=== PATIENT | female | born 1935 | race Caucasian/White ===

== ENCOUNTER → 2024-01-29 | Outpatient (CLI) | payer MEDICARE, BC, SELFPAY ==
--- NOTE | 2024-01-29 13:53 | XR_ITS ---
Examination: Lumbar spine, 5 views Technique: Lumbar spine AP, lateral, coned lateral lower lumbar spine, bilateral obliques 5 views Exam date and time: January 29, 2024 1505 hours Comparison March 03, 2019 INDICATIONS: Patient fell 2 weeks ago with injury to lower back, lower back pain, chronic lower back pain years lumbar spine surgery 5 years ago FINDINGS: Severe osteopenia Lumbar dextroscoliosis 20 degrees Diffuse advanced facet arthropathy Stable alignment transpedicular lumbar fusion L4-L5 Advanced degenerative disc disease L2-L3, L3-L4 Compression fracture with depression superior endplate L1, age-indeterminate IMPRESSION: Recommend CT scan lumbar spine follow-up to best assess acuity of the fracture of the L1 vertebral body
== END | disposition home or self-care (01) ==
LOC: CDIM 13:31
PROVIDERS: PCP Family Medicine; Referring Provider Physician Assistant; Visit Provider Physician Assistant
DX: S39.92XA Unspecified injury of lower back, initial encounter (principal); W19.XXXA Unspecified fall, initial encounter
CPT/HCPCS: 72110

== ENCOUNTER → 2024-03-02 | Outpatient (CLI) | payer MEDICARE, BC, SELFPAY ==
[2024-03-02 12:47] LABS: Basophils # (Auto) 0.1 Thou/mm3 (0.0-0.2); Basophils % (Auto) 1 % (0-2.5); Eosinophils # (Auto) 0.1 Thou/mm3 (0.0-0.5); Eosinophils % (Auto) 2 % (0-10); Hematocrit 45.4 % (36.0-46.0); Hemoglobin 14.9 g/dL (12.0-16.0); Immature Granulocytes % (Auto) 0 % (0-0); Immature Granulocytes Auto 0.03 Thou/mm3 (0.00-0.00); Lymphocytes # (Auto) 2.9 Thou/mm3 (1.0-4.8); Lymphocytes % (Auto) 40 % (10-50); Mean Corpuscular HGB Conc 32.8 g/dl (31.0-37.0); Mean Corpuscular Hemoglobin 29.1 pg (25.0-35.0); Mean Corpuscular Volume 89 fL (80-100); Monocytes # (Auto) 0.5 Thou/mm3 (0.0-0.8); Monocytes % (Auto) 6 % (0-12); Neutrophils # (Auto) 3.8 Thou/mm3 (1.8-7.7); Neutrophils % (Auto) 52 % (37-80); Nucleated Red Blood Cell % 0 /100 WBC (0); Platelet Count 306 Thou/mm3 (140-440); RDW Standard Deviation 41.4 fL (36.4-46.3); Red Blood Count 5.12 Miln/mm3 (4.00-5.20); White Blood Count 7.3 Thou/mm3 (3.6-11.0)
[2024-03-02 13:06] LABS: Alanine Aminotransferase 13 U/L (10-49); Albumin, Serum 4.5 gm/dL (3.4-4.8); Albumin/Globulin Ratio 1.7 (1.2-2.2); Alkaline Phosphatase 103 U/L (46-116); Anion Gap 7 (7-16); Aspartate Amino Transferase 22 U/L (0-34); BUN/Creatinine Ratio 21 Ratio (12-20); Bilirubin,Total 0.6 mg/dL (0.3-1.2); Blood Urea Nitrogen 17 mg/dL (9-23); Calcium 9.8 mg/dL (8.3-10.6); Calcium (Corrected) 9.8 mg/dL (8.5-10.1); Carbon Dioxide 29.9 mMol/L (20.0-31.0); Chloride 103 mMol/L (98-107); Creatinine (Component) 0.8 mg/dL (0.6-1.3); Globulin 2.7 gm/dL (2.3-3.5); Glucose 107 mg/dL (74-106); Osmolality,Calculated 280 (275-295); Potassium 3.9 mMol/L (3.4-5.1); Sodium 140 mMol/L (136-145); Thyroid Stimulating Hormone 4.37 uIU/mL (0.55-4.78); Total Protein 7.2 gm/dL (5.7-8.2); eGFR > 60 See Note
[2024-03-02 13:12] LABS: Glucose Estimated Average 126 mg/dL (80-131)
[2024-03-02 13:22] LABS: Cardiac Risk Estimate 4.3 RATIO (3.7-5.6); Cholesterol 211 mg/dL (132-200); HDL Cholesterol 49 mg/dL (40-60); LDL Cholesterol,Calculated 102 mg/dL (0-130); Triglycerides 302 mg/dL (30-150)
[2024-03-02 17:49] LABS: Vitamin B12 486 pg/mL (211-911)
[2024-03-03 12:15] LABS: Vitamin D 25 Hydroxy Total 35.3 ng/mL (7.3-40.2)
== END | disposition home or self-care (01) ==
LOC: COPL 10:37
PROVIDERS: PCP Family Medicine; Referring Provider Physician Assistant; Visit Provider Physician Assistant
DX: I10 Essential (primary) hypertension (principal); R73.01 Impaired fasting glucose; E78.5 Hyperlipidemia, unspecified; E55.9 Vitamin D deficiency, unspecified
CPT/HCPCS: 36415; 80053; 80061; 81001; 82306; 82607; 83036; 84443; 85025

== ENCOUNTER → 2024-03-10 | Outpatient (CLI) | payer MEDICARE, BC, SELFPAY ==
--- NOTE | 2024-03-10 13:30 | XR_ITS ---
Examination: CT lumbar spine, without contrast. 2-D sagittal reconstructions. 2-D coronal reconstructions. 3-D reconstructions. Date and time of exam:March 10, 2024 1559 hours INDICATIONS: Patient fell December 2023 with back fracture in persistent pain CTDI: vol (mGy):21.7 DLP: (mGycm):575 Technique: Multiple 1.25 mm axial sections of the lumbar spine without intravenous contrast have been obtained. 2-D sagittal and coronal reconstructions have been obtained. 3-D reconstructions have been obtained. Low dose protocols were performed. One or more of the following dose reduction techniques were used; automated exposure control, adjustment of the mA and/or KV according to patient size, use of iterative reconstruction technique. Findings: Acute fracture L1 vertebral body, depression superior endplate, reduction in height 40% Pedicles appear intact Advanced degenerative disc disease L2-L3 Transpedicular fusion with disc spacer at the L4-L5 level No focal lumbar disc protrusion IMPRESSION: Acute fracture L1 vertebral body, depression superior endplate, reduction in height 40% Satisfactory alignment of this vertebral body
== END | disposition home or self-care (01) ==
LOC: CCTX 12:59
PROVIDERS: PCP Family Medicine; Referring Provider Physician Assistant; Visit Provider Physician Assistant
DX: S32.010B Wedge compression fracture of first lumbar vertebra, initial encounter for open fracture (principal); W19.XXXD Unspecified fall, subsequent encounter
CPT/HCPCS: 72131

== ENCOUNTER → 2024-08-31 | Outpatient (CLI) | payer MEDICARE, BC, SELFPAY ==
[2024-08-31 12:34] LABS: Glucose Estimated Average 126 mg/dL (80-131); Hemoglobin A1C 6.0 % Hgb (4.8-6.0)
[2024-08-31 12:37] LABS: Alanine Aminotransferase 16 U/L (10-49); Albumin, Serum 4.4 gm/dL (3.4-4.8); Albumin/Globulin Ratio 1.8 (1.2-2.2); Alkaline Phosphatase 95 U/L (46-116); Anion Gap 9 (7-16); Aspartate Amino Transferase 23 U/L (0-34); BUN/Creatinine Ratio 24 Ratio (12-20); Bilirubin,Total 0.8 mg/dL (0.3-1.2); Blood Urea Nitrogen 19 mg/dL (9-23); Calcium 9.4 mg/dL (8.3-10.6); Calcium (Corrected) 9.4 mg/dL (8.5-10.1); Carbon Dioxide 31.3 mMol/L (20.0-31.0); Cardiac Risk Estimate 4.3 RATIO (3.7-5.6); Chloride 103 mMol/L (98-107); Cholesterol 213 mg/dL (132-200); Creatinine (Component) 0.8 mg/dL (0.6-1.3); Globulin 2.4 gm/dL (2.3-3.5); Glucose 107 mg/dL (74-106); HDL Cholesterol 50 mg/dL (40-60); LDL Cholesterol,Calculated 113 mg/dL (0-130); Osmolality,Calculated 287 (275-295); Potassium 4.2 mMol/L (3.4-5.1); Sodium 143 mMol/L (136-145); Total Protein 6.8 gm/dL (5.7-8.2); Triglycerides 250 mg/dL (30-150); eGFR > 60 See Note
== END | disposition home or self-care (01) ==
LOC: COPL 11:33
PROVIDERS: PCP Physician Assistant; Referring Provider Physician Assistant; Visit Provider Physician Assistant
DX: I10 Essential (primary) hypertension (principal); E78.5 Hyperlipidemia, unspecified; R73.01 Impaired fasting glucose
CPT/HCPCS: 36415; 80053; 80061; 83036

== ENCOUNTER 2024-11-13 12:02 | Inpatient (IN) | payer MEDICARE, BC, SELFPAY ==
[2024-11-13] VITALS (7 sets, daily range): BP systolic 105–121; BP diastolic 56–66; PULSE 51–67; RESP 16–94; TEMP 36.8–37.7; O2SAT 92–98; BMI 29.2; BMI 27.3
--- NOTE | 2024-11-13 | XR_ITS ---
Examination: CT brain head without contrast. 2-D sagittal coronal reconstructions Date and time of exam:November 13, 2024, 1342 hrs., Comparison February 10, 2017 Indications: Frequent falls this week with injury of the head, head pain CTDI: vol (mGy):47.9 DLP: (mGycm):882 Technique: Multiple CT axial sections of the brain have been obtained, 5 mm slice thickness. Contrast has not been administered. 2-D sagittal, coronal reconstructions have been obtained Low dose protocols were performed. One or more of the following dose reduction techniques were used; automated exposure control, adjustment of the mA and/or KV according to patient size, use of iterative reconstruction technique. Findings: No significant ventricular enlargement. Intra-axial or extra-axial hemorrhage density is not seen. No mass effect or midline shift Basal cisterns are not remarkable. Fourth ventricle is midline. Cranial vault intact. Impression: Negative for acute hemorrhage, mass effect or midline shift
--- NOTE | 2024-11-13 12:32 | XR_ITS ---
Examination: AP chest single view Technique one AP portable chest single view Date and time: November 13, 2024, 1300 hrs. Indications: Sepsis alert Findings: Subtle opacity left base retrocardiac Right lung clear. Mild prominence left ventricle Impression: Early pneumonia left base.
--- NOTE | 2024-11-13 12:32 | EKG_ITS ---
[facility] Test Date: 2024-11-13 Pat Name: SALAZAR PICKETT Department: Room: - Gender: Female Senior Environmental Consultant: : 1935 Requested By: Michael Aldana Order Number: [id number] Reading MD: Michael Aldana Measurements Intervals Bowers Rate: 62 P: 26 IA: 198 QRS: 13 QRSD: 97 T: 72 QT: 411 QTc: 419 Interpretive Statements SINUS RHYTHM NONSPECIFIC T-WAVE ABNORMALITY No previous ECG available for comparison /store/S0/[id number]/ecg/[id number].pdf
--- NOTE | 2024-11-13 12:33 | EDNOTE_ITS ---
ED Weakness RME/HPI General Chief complaint: Weakness Stated complaint: WEAKNESS Time Seen by Provider: 11/13/24 12:14 Arrival date/time: 11/13/24 12:02 RME / HPI RME / HPI Narrative: 89-year-old female patient with significant history of blood clots, currently on Xarelto, hypertension, who lives with her daughter in her house came in for evaluation regarding generalized body weakness. Patient has been having worsening generalized body weakness for the last 2 days, this time patient needs moderate assistance to do ambulation. Patient been falling a lot for the last 3 weeks.. Patient complain of headache described as dull ache, severity mild. Also complaining of nonproductive cough for the last 2 days. Also complaining of diarrhea, nonbloody, and nausea, for few days. Patient denies any hip pain. Denies any back pain denies any chest pain or abdominal pain. Denies any fever denies any other complaints no medication was taken prior to arrival. She is currently not taking any antibiotic. Related Data Home Medications ?Medication ?Instructions ?Recorded ?Confirmed omeprazole 40 mg capsule,delayed 40 mg PO QDAY ##0 07/0305/29/23 release atorvastatin 40 mg tablet 40 mg PO QDAY 11/13/2111/13 calcium 600 mg (as 1 tab PO DAILY 11/13/2106/17 carbonate)-vitamin D3 5 mcg (200 unit) tablet cholecalciferol (vitamin D3) 125 5,000 unit PO DAILY 0 11/13/21 11/13/24 mcg (5,000 unit) tablet (Vitamin D3) docusate sodium 100 mg tablet 100 mg PO DAILY 11/13/21 11/13/24 gabapentin 100 mg tablet 100 mg PO DAILY 11/13/2106/17 hydrocodone 5 mg-acetaminophen 325 1 tab PO BID PRN Pa in 11/13/21 11/13/24 mg tablet metoprolol succinate 25 mg 25 mg PO QDAY 11/13/2110/26 tablet,extended release 24 hr pantoprazole 40 mg tablet,delayed 40 mg PO DAILY 11/1305/29/23 release rivaroxaban 20 mg tablet (Xarelto) 20 mg PO QDAY 11/1311/13/24 vitamins A,C,L-dkgt-bybrln 4,296 1 cap PO DAILY 11/13/24 mcg-226 mg-90 mg capsule (PreserVision AREDS) Allergies Allergy/AdvReac Type Severity Reaction Status Date / Time codeine Allergy Unknown Verified 11/13/24 12:10 Review of Systems Review of Systems Narrative Review of Systems: Review of system reviewed and within normal limits except mentioned in HPI ED Exam Narrative Physical exam: VITAL SIGNS: Reviewed. GENERAL APPEARANCE: Alert and interactive, follows commands, no acute distress, HEAD AND FACE: Non-traumatic. ENT: PERRL, pink conjunctivitis, eyelid no trauma, Mucous membrane dry NECK: Supple, nontender, no nuchal rigidity. CHEST: No tenderness, no crepitus, no paradoxical movement, no retractions. LUNGS: Clear, well ventilated, symmetric, no rales, no wheezing, no ronchi, no stridor, good breath sounds bilaterally. HEART: Regular rate, regular rhythm, no murmur, no gallops. ABDOMEN: Soft, positive bowel sounds, nondistended, no guarding, nontender, no rebound, no masses, RECTAL: Deferred. GENITAL: Deferred. NEUROLOGICAL: Gross motor function intact sensory function intact, Appropriate for age. MUSCULOSKELETAL: low back nontender, full range of motion. EXTREMITIES: Nontender, full range of motion. SKIN: Color pink, dry, no rash, no lacerations, no abrasions, no contusions. LYMPHATICS: Deferred. Course Quality Measures none Orders Category Date Time Status Bedside COVID-19 Antigen Test NOW Care 11/13/24 15:48 Active Bedside Influenza A&B Antigen Test NOW Care 11/13/24 15:49 Completed COVID-19 Screening Questionnaire NOW Care 11/13/24 16:13 Active Senior Mechanical Project Manager STAT Care 11/13/24 12:32 Active Consult Information Consultant NOW Care 11/13/24 12:36 Active Continuous Pulse Oximetry STAT Care 11/13/24 12:32 Completed Decision to Admit X1 Care 11/13/24 16:13 Completed EKG (ED ONLY) *Do not use* NOW Care 11/13/24 12:32 Completed In and Out Catheter X1PRN Care 11/13/24 12:32 Completed Insert IV NOW Care 11/13/24 12:32 Active NPO STAT Care 11/13/24 12:32 Active Strict Intake and Output Routine Care 11/13/24 12:32 Ordered PT [Referral Physical Therapy] Stat Cons 11/13/24 12:[address] abdomen pelvis wo con Stat Exams 11/13/24 13:[address] head/brain wo con Stat Exams 11/13/24 Completed EKG (ED Only) Stat Exams 11/13/24 12:32 Draft XR chest 1V SEPSIS PROTOCOL Stat Exams 11/13/24 12:32 Completed B-Type Natriuretic Peptide Stat Lab 11/13/24 12:36 Completed Blood Culture (Lab) Stat Lab 11/13/24 12:51 Received CBC Stat Lab 11/13/24 12:36 Completed Comprehensive Metabolic Panel Stat Lab 11/13/24 13:55 Completed LDH (Lactate Dehydrogenase) Stat Lab 11/13/24 13:55 Completed Lactate (Lactic Acid) Stat Lab 11/13/24 12:36 Completed Magnesium Stat Lab 11/13/24 13:55 Completed Partial Thromboplastin Time Stat Lab 11/13/24 12:36 Completed Phosphorous Stat Lab 11/13/24 13:55 Completed Procalcitonin Stat Lab 11/13/24 13:55 Completed Prothrombin Time with INR Stat Lab 11/13/24 12:36 Completed Stool Culture Stat Lab 11/13/24 16:13 Ordered Stool for WBCs Stat Lab 11/13/24 16:13 Ordered Troponin I Stat Lab 11/13/24 13:55 Completed Urinalysis, C/S if Indicated Stat Lab 11/13/24 13:21 Completed c diff [Clostridium Difficile PCR] Stat Lab 11/13/24 Ordered Acetaminophen Tab [Tylenol ES Tab] Med 11/13/24 16:41 Discontinued 500 mg PO X1 ONE HYDROcodone*/APAP 5/325 [[place] 5/325] Med 11/13/24 16:12 Discontinued 1 tab PO X1 ONE Ringers Lactated 1000 ml [Lactated Ringers] 1,000 ml Med 11/13/24 16:15 Active IV 125 mls/hr Ringers Lactated 1000 ml [Lactated Ringers] 1,000 ml Med 11/13/24 12:31 Discontinued IV 999 mls/hr cefTRIAXone/D5w 1gm IV premix [Rocephin/D5w 1gm IV Med 11/13/24 15:48 Discontinued premix] 1 gm in 50 ml IV X1 Oxygen Delivery NOW RT 11/13/24 12:32 Active Vital Signs Vital signs: Vital Signs Temperature 99.9 F 09/20/25 12:07 Pulse Rate 63 11/13/24 12:07 Respiratory Rate 18 11/13/24 12:07 Blood Pressure 105/62 11/13/24 12:07 Pulse Oximetry (%) 93 L 11/13/24 12:07 Oxygen Delivery Method Room Air 11/13/24 12:07 Weakness MDM Narrative [facility] Narrative:: 89-year-old female patient with significant history of blood clots, currently on Xarelto, hypertension, who lives with her daughter in her house came in for evaluation regarding generalized body weakness. Patient has been having worse madelin generalized body weakness for the last 2 days, this time patient needs moderate assistance to do ambulation. Patient been falling a lot for the last 3 weeks.. Patient complain of headache described as dull ache, severity mild. Also complaining of nonproductive cough for the last 2 days. Also complaining of diarrhea, nonbloody, and nausea, for few days. Patient denies any hip pain. Denies any back pain denies any chest pain or abdominal pain. Denies any fever denies any other complaints no medication was taken prior to arrival. She is currently not taking any antibiotic. EKG showed sinus rhythm, ventricular rate of 62 bpm, no ST segment elevation depression noted. Patient tested positive for COVID-19. Urinalysis showed UTI chest ray showed mild pneumonia, CT of the abdomen and pelvis showed mild diverticulitis. CT head came back unremarkable. Spoke with hospitalist, discussed the case, and admitted the patient. Patient data External records reviewed:: None Clinical information provided by:: patient and family Social determinants that could affect healthcare access:: none Patient has the following chronic illnesses:: Hypertension How is presenting disease/condition affected by chronic disease/condition?: exacerbated by Evaluation data The following diagnostics were reviewed and interpreted by me:: lab results, radiology exam(s) and EKG tracing(s) Lab and/or radiology exams considered but not ordered:: None Interpretation Summary: See results [facility] Medications / Prescriptions Medications or Prescriptions considered but not ordered:: IV fluids, ceftriaxone IV, Tylenol and [place] none Medication administrations:: Medication Administration History Lactated Ringer's (Lactated Ringers) 1,000 mls @ 125 mls/hr IV .Q8H HARVINDER Stop: 12/13/24 16:14 Last Admin: 11/13/24 16:46 Dose: 125 mls/hr Documented By: BY Discontinued Medications Acetaminophen (Acetaminophen 500 Mg Tablet) 500 mg PO X1 ONE Stop: 11/13/24 16:42 Last Admin: 11/13/24 16:49 Dose: 500 mg Documented By: BY Hydrocodone Bitart/Acetaminophen (Hydrocodone/Apap 5/325 Tablet) 1 tab PO X1 ONE Stop: 11/13/24 16:13 Last Admin: 11/13/24 16:52 Dose: Not Given Documented By: BY Non-Admin Reason: Patient Refused Lactated Ringer's (Lactated Ringers) 1,000 mls @ 999 mls/hr IV .Q1H1M ONE Stop: 11/13/24 13:31 Last Infusion: 11/13/24 13:48 Dose: Infused Documented By: Admin: 11/13/24 12:47 Dose: 999 mls/hr Documented By: BY Ceftriaxone Sodium/Dextrose (Rocephin/D5w 1gm Iv Premix) 1 gm in 50 mls @ 100 mls/hr IV X1 ONE Stop: 11/13/24 16:17 Last Admin: 11/13/24 16:38 Dose: 100 mls/hr Documented By: BY IV fluids, ceftriaxone IV, Tylenol Consultations Consultation(s) initiated? (list below): No Diagnosis Weakness Differential Diagnosis: sepsis and dehydration Most likely diagnosis given after review of the tests above:: Pneumonia, diverticulitis, generalized weakness, COVID Admission Indicated Admission indicated?: indicated Admission Request Was there a request for admission?: Yes Admission Attestation Admission request attestation: Discussed case with [Dr Amor] from Hospitalist service regarding admission. Discussed patients ED course, exam findings, labs, and radiology results. The Hospitalist [agrees] to accept the patient for admission. Disposition Plan Disposition Plan: Admit Discharge Plan Plan Patient Disposition: Admit Acute Care w/in Hospital Prescriptions/Referrals Prescriptions/Med Rec: No Action omeprazole 40 MG capsule,delayed release(DR/EC) 40 mg PO QDAY Qty: 0 Xarelto 20 mg Tablet 20 mg PO QDAY Rx Instructions: must administer with evening meal atorvastatin 40 mg Tablet 40 mg PO QDAY hydrocodone-acetaminophen [[place]] 5-325 mg Tablet 1 tab PO BID PRN (Reason: Pain) Patient Comments: states she takes half a pill calcium carbonate-vitamin D3 [Calcium 600 with Vitamin D3] 600 mg-5 mcg (200 unit) Tablet 1 tab PO DAILY pantoprazole 40 mg Tablet,Delayed Release (Dr/Ec) 40 mg PO DAILY metoprolol succinate 25 mg Tablet Extended Release 24 Hr 25 mg PO QDAY docusate sodium 100 mg Tablet 100 mg PO DAILY gabapentin 100 mg Tablet 100 mg PO DAILY PreserVision AREDS [id number] Capsule 1 cap PO DAILY cholecalciferol (vitamin D3) [Vitamin D3] 125 mcg (5,000 unit) Tablet 5,000 unit PO DAILY Referrals: Jeannine Rose PA-C [Primary Care Provider] - In 1 week Problem List Clinical Impression: Weakness generalized, COVID, Pneumonia, Diverticulitis Patient/Caregiver Discharge Instructions Print Language: German Stand Alone Forms: Pilar Award Info., Patient Portal Info Letter
[2024-11-13] MEDS: RINGERS LACTATED 1000 ML 1,000 ML 999 ML IV (12:47)
[2024-11-13 12:57] LABS: Lactate (Lactic Acid) 1.6 mMol/L (0.4-2.0)
[2024-11-13 13:03] LABS: Basophils # (Auto) 0.0 Thou/mm3 (0.0-0.2); Basophils % (Auto) 0 % (0-2.5); Eosinophils # (Auto) 0.0 Thou/mm3 (0.0-0.5); Eosinophils % (Auto) 0 % (0-10); Hematocrit 41.0 % (36.0-46.0); Hemoglobin 13.3 g/dL (12.0-16.0); Immature Granulocytes Auto 0.03 Thou/mm3 (0.00-0.00); Lymphocytes # (Auto) 1.2 Thou/mm3 (1.0-4.8); Lymphocytes % (Auto) 15 % (10-50); Mean Corpuscular HGB Conc 32.4 g/dl (31.0-37.0); Mean Corpuscular Hemoglobin 29.0 pg (25.0-35.0); Mean Corpuscular Volume 90 fL (80-100); Monocytes # (Auto) 0.8 Thou/mm3 (0.0-0.8); Monocytes % (Auto) 10 % (0-12); Neutrophils # (Auto) 6.0 Thou/mm3 (1.8-7.7); Neutrophils % (Auto) 74 % (37-80); Nucleated Red Blood Cell # 0.00 Thou/mm3 (0.00-0.00); Nucleated Red Blood Cell % 0 /100 WBC (0); Platelet Count 240 Thou/mm3 (140-440); RDW Standard Deviation 41.7 fL (36.4-46.3); Red Blood Count 4.58 Miln/mm3 (4.00-5.20); White Blood Count 8.1 Thou/mm3 (3.6-11.0)
[2024-11-13 13:27] LABS: B-Type Natriuretic Peptide 104 pg/mL (0-100)
[2024-11-13 13:28] LABS: INR 1.1 (0.9-1.3); Partial Thromboplastin Time 27.8 Seconds (22.0-36.0); Prothrombin Time 11.6 Seconds (9.0-12.2)
--- NOTE | 2024-11-13 13:34 | XR_ITS ---
Examination: CT abdomen and pelvis without contrast. Coronal 3-D reconstructions. Sagittal 2-D reconstructions. Date and time of exam:November 13, 2024, 1344 hrs., Comparison October 18, 2007. Indications: Nausea vomiting beginning 3 days ago CTDI: vol (mGy): 8.53 DLP: (mGycm): 481 Technique: Axial images of the abdomen have been obtained, 3 mm slice thickness Intravenous contrast material has not been administered. Low dose protocols were performed. One or more of the following dose reduction techniques were used; automated exposure control, adjustment of the mA and/or KV according to patient size, use of iterative reconstruction technique. Findings: Mild to moderate enlargement cardiac contour. Fatty infiltration throughout the liver Absent gallbladder Spleen not enlarged Small pancreatic calcification no pancreatitis Normal adrenal glands. 1 mm nonobstructing left renal calculus, 1 mm nonobstructing right renal calculus, no hydronephrosis or ureteral calculi Abdominal aorta is not enlarged No pericecal inflammatory change. No bowel obstruction Colonic diverticulosis, subtle edema involving the sigmoid colon most consistent with mild acute diverticulitis No pelvic mass Bladder intact Impression: Tiny bilateral nonobstructing renal calculi Findings suspicious for mild acute sigmoid diverticulitis, no peridiverticular abscess
[2024-11-13 13:47] LABS: Collection Type, Urine Clean Catch; Squamous Epithelial Cell,Urine 0 /hpf (0-5)
[2024-11-13 14:05] LABS: Bilirubin,Urine Negative (Negative); Blood,Urine Negative (Negative); Clarity,Urine Turbid (Clear/Hazy); Color,Urine Yellow (Lt Yel-Yel); Culture Indicated,Urine Not Indicated; Glucose, Urine Negative (Negative); Ketones,Urine 1+ (Negative); Leukocyte Esterase,Urine Negative (Negative); Nitrite,Urine Negative (Negative); PH,Urine 5.5 (5.0-7.0); Protein,Urine 1+ (Neg - Trace); RBC,Urine 1 /hpf (0-3); Specific Gravity,Urine 1.030 (1.001-1.035); Urobilinogen,Urine Negative mg/dL (0.0-1.0); WBC,Urine 2 /hpf (0-5)
[2024-11-13 14:30] LABS: Alanine Aminotransferase 41 U/L (10-49); Albumin, Serum 3.9 gm/dL (3.4-4.8); Albumin/Globulin Ratio 1.8 (1.2-2.2); Alkaline Phosphatase 82 U/L (46-116); Anion Gap 10 (7-16); Aspartate Amino Transferase 53 U/L (0-34); BUN/Creatinine Ratio 13 Ratio (12-20); Bilirubin,Total 0.4 mg/dL (0.3-1.2); Blood Urea Nitrogen 10 mg/dL (9-23); Calcium 9.1 mg/dL (8.3-10.6); Calcium (Corrected) 9.2 mg/dL (8.5-10.1); Carbon Dioxide 27.0 mMol/L (20.0-31.0); Chloride 101 mMol/L (98-107); Creatinine (Component) 0.8 mg/dL (0.6-1.3); Estimated Creatinine Clearance 47.1 mL/min (>60); Globulin 2.2 gm/dL (2.3-3.5); Glucose 105 mg/dL (74-106); LDH (Lactate Dehydrogenase) 170 U/L (120-246); Magnesium 1.8 mg/dL (1.6-2.6); Osmolality,Calculated 274 (275-295); Phosphorous 3.6 mg/dL (2.4-5.1); Potassium 3.5 mMol/L (3.4-5.1); Procalcitonin 0.08 ng/ml (0.0-0.49); Sodium 138 mMol/L (136-145); Total Protein 6.1 gm/dL (5.7-8.2); Troponin I < 0.002 ng/mL (0.0-0.045); eGFR > 60 See Note
--- NOTE | 2024-11-13 16:10 | PC.NURSE ---
patient had x1 loose still, yellow in color no foul smell
[2024-11-13] MEDS: cefTRIAXone/D5w 1gm IV premix 1 GM/50 ML BAG IV (16:38)
[2024-11-13] MEDS: RINGERS LACTATED 1000 ML 1,000 ML 125 ML IV (16:46)
[2024-11-13] MEDS: ACETAMINOPHEN 500 MG TABLET PO (16:49)
--- NOTE | 2024-11-13 18:31 | ESHP_ITS ---
<Statement entered by Patrick Tello MD - 11/18/24 17:39> I reviewed above note and agree with findings and plans. I have also personally examined the patient with medicine team and went over assessment and plan with medical team including internet sales consultant and resident physician. 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 Patient is usually able to complete ADLs on her own with minimal assistance. However since past couple of days she has needed to use walker and assistance from family members including her daughter to get up from the bed and walk to the bathroom. Also endorses nausea with vomiting, denies any new food that she has been eating outside. Endorses decreased water intake and diarrhea as well about 3-4 episodes since past 3 days. She has abdominal pain and left lower quadrant 7/10 when not using any pain regimen. Denies any hematochezia or melena, hematemesis, no dysuria. Patient's clip loading machine feeder is Dr. Montano in [place]. Last follow up was about 6 months ago with no changes in her medication. Denies any workup outpatient for underlying causes of recurrent DVTs. In ED, labs are unremarkable. CT head was negative for any acute changes, CT abdomen pelvis showing diverticulosis with diverticulitis and 1 mm nonobstructing bilateral renal calculi. Vitals low temp 100, heart rate 54. COVID test positive, UA negative. She was given 1 bolus LR and 1 dose 1 g ceftriaxone while in the ED. Will admit patient for generalized weakness, intractable abdominal pain, intractable nausea and vomiting secondary to diverticulitis. PMH: as noted above PSH: appendectomy 195, lumpectomy left breast 1990, gallbladder surgery 1991, right knee surgery 2004, b/l salphingo oophrectomy 2011, back surgery FamHx: mother had diabetes, no history of cancer, no NH in family Social: Lives at home with daughter, no drinking, no smoking. Meds: Metoprolol succinate 25 mg daily, atorvastatin 40 mg daily, Xarelto 10 mg daily, [place] 5 1 tab twice daily as needed for pain allergies: codeine Review of Systems Review of Systems Systems Reviewed: All systems reviewed, normal except as documented Exam Vital Signs Temp Pulse Resp BP Pulse Ox O2 Del Method 98.2 F 56 L 18 121/66 96 Room Air 11/13/24 17:02 11/13/24 18:06 11/13/24 18:06 11/13/24 15:38 11/13/24 17:02 11/13/24 17:02 Narrative Exam General: Elderly female, No acute distress, cooperative HEENT: NCAT, No JVD noted. Mucosa dry. Pupils are equal and reactive to light bilaterally Cardiovascular: Normal S1 and S2. Regular rate and rhythm. Respiratory: Lungs are clear to auscultation bilaterally. No wheezing or crackles heard. Abdomen: Soft, LLQ pain, not distended, normal bowel sounds. Skin: Warm to touch, dry, no rashes noted Musculoskeletal: No gross injuries. Able to move all 4 extremities. No pitting edema Neuro: Alert and oriented x3. No focal neuro deficits. Psych: Normal affect and mood Results: Labs 11/13/24 12:36 11/13/24 13:55 Labs: Short CBC 11/13/24 Range/Units 12:36 WBC 8.1 (3.6-11.0) Thou/mm3 Hgb 13.3 (12.0-16.0) g/dL Hct 41.0 (36.0-46.0) % Plt Count 240 (140-440) Thou/mm3 BMP 11/13/24 13:55 Sodium 138 Potassium 3.5 Chloride 101 Carbon Dioxide 27.0 BUN 10 Creatinine 0.8 Glucose 105 Calcium 9.1 Cardiac Enzymes 11/13/24 Range/Units 13:55 Troponin I < 0.002 (0.0-0.045) ng/mL Liver Function 11/13/24 Range/Units 13:55 Total Bilirubin 0.4 (0.3-1.2) mg/dL AST 53 H (0-34) U/L ALT 41 (10-49) U/L Alkaline Phosphatase 82 (46-116) U/L Albumin 3.9 (3.4-4.8) gm/dL Urine 11/13/24 Range/Units 13:21 Urine Color Yellow (Lt Yel-Yel) Urine Clarity Turbid A (Clear/Hazy) Urine pH 5.5 (5.0-7.0) Ur Specific [place] 1.030 (1.001-1.035) Urine Protein 1+ A (Neg - Trace) Urine Glucose (UA) Negative (Negative) Quality Measures Quality Measures none Advance care planning discussed with:: patient Medications Home Medications and Allergies Home Medications ?Medication ?Instructions ?Recorded ?Confirmed ?Type omeprazole 40 mg capsule,delayed 40 mg PO QDAY ##0 07/0305/29/23 History release atorvastatin 40 mg tablet 40 mg PO QDAY 11/13/2111/13 History calcium 600 mg (as 1 tab PO DAILY 11/13/2106/17 History carbonate)-vitamin D3 5 mcg (200 unit) tablet cholecalciferol (vitamin D3) 125 5,000 unit PO DAILY 0 11/13/21 11/13/24 History mcg (5,000 unit) tablet (Vitamin D3) docusate sodium 100 mg tablet 100 mg PO DAILY 11/13/21 11/13/24 History gabapentin 100 mg tablet 100 mg PO DAILY 11/13/2106/17 History hydrocodone 5 mg-acetaminophen 325 1 tab PO BID PRN Pa in 11/13/21 11/13/24 History mg tablet metoprolol succinate 25 mg 25 mg PO QDAY 11/13/2110/26 History tablet,extended release 24 hr pantoprazole 40 mg tablet,delayed 40 mg PO DAILY 11/1305/29/23 History release rivaroxaban 20 mg tablet (Xarelto) 20 mg PO QDAY 11/1311/13/24 History vitamins A,C,J-bruf-qctcsr 4,296 1 cap PO DAILY 11/13/24 History mcg-226 mg-90 mg capsule (PreserVision AREDS) Allergies Allergy/AdvReac Type Severity Reaction Status Date / Time codeine Allergy Unknown Verified 11/13/24 12:10 Visit Medications Acetaminophen (Acetaminophen 325 Mg Tablet) 650 mg PO Q6H PRN PRN Reason: Fever >100.1 or pain Stop: 12/13/24 17:40 Lactated Ringer's (Lactated Ringers) 1,000 mls @ 75 mls/hr IV .[id number] HARVINDER Stop: 12/13/24 17:45 Ceftriaxone Sodium 2 gm/ (Sodium Chloride) 50 mls @ 100 mls/hr IV QDAY HARVINDER Stop: 11/21/24 08:59 Metronidazole (Flagyl 500 Mg Iv) 500 mg in 100 mls @ 200 mls/hr IV Q8HR HARVINDER Stop: 11/20/24 17:47 Ondansetron HCl (Ondansetron Inj 2 Mg/Ml Inj 2 Ml) 4 mg IVP Q6H PRN; Protocol PRN Reason: NAUSEA OR VOMITING Stop: 12/13/24 17:40 Rivaroxaban (Rivaroxaban 10 Mg Tablet) 10 mg PO QDAY HARVINDER Stop: 12/14/24 08:59 Sennosides (Senna Tablet) 1 tab PO QDAY PRN; Protocol PRN Reason: constipation Stop: 12/13/24 17:40 Discontinued Medications Acetaminophen (Acetaminophen 500 Mg Tablet) 500 mg PO X1 ONE Stop: 11/13/24 16:42 Last Admin: 11/13/24 16:49 Dose: 500 mg Hydrocodone Bitart/Acetaminophen (Hydrocodone/Apap 5/325 Tablet) 1 tab PO X1 ONE Stop: 11/13/24 16:13 Last Admin: 11/13/24 16:52 Dose: Not Given Lactated Ringer's (Lactated Ringers) 1,000 mls @ 999 mls/hr IV .Q1H1M ONE Stop: 11/13/24 13:31 Last Infusion: 11/13/24 13:48 Dose: Infused Ceftriaxone Sodium/Dextrose (Rocephin/D5w 1gm Iv Premix) 1 gm in 50 mls @ 100 mls/hr IV X1 ONE Stop: 11/13/24 16:17 Last Infusion: 11/13/24 17:48 Dose: Infused Lactated Ringer's (Lactated Ringers) 1,000 mls @ 125 mls/hr IV .Q8H HARVINDER Stop: 12/13/24 16:14 Last Admin: 11/13/24 16:46 Dose: 125 mls/hr Assessment & Plan Plan Swetha Davidson is 89yr female with 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 CT abdomen pelvis showing diverticulosis with diverticulitis. Will admit patient for generalized weakness, intractable abdominal pain, intractable nausea and vomiting secondary to diverticulitis. # Intractable abdominal pain #Intractable nausea and vomiting #Generalized weakness 2/2 #Diverticulitis Endorses LLQ pain, diarrhea 3-4 movements past 3 days, nausea/vomiting, decreased oral intake. No fever, WBC within normal limits. CT head was negative for any acute changes, CT abdomen pelvis showing diverticulosis with diverticulitis. She was given 1 bolus LR and 1 dose 1 g ceftriaxone while in the ED. ?Stool studies pending ?N.p.o. and start clear liquid diet to advance as tolerated ?IV ceftriaxone 2 g daily (11/13- ?IV metronidazole 500 mg TID (11/13- ?Maintenance fluids IV LR 75 cc/hr ?Zofran for nausea -PT eval #COVID-19 infection Patient is clinically stable saturating adequately on room air. - Continue to monitor status -supportive care # Recurrent DVTs Resume home medication Xarelto 10 mg daily starting tomorrow. #Hypertension Hold home medication metoprolol succinate 25 mg daily as blood pressure well- controlled at this time. - Continue to monitor vitals #Hyperlipidemia resume atorvastatin 40 mg daily Health maintenance: Dispo: med surg, IV abx for diverticulitis FEN: NPO, advance as tolerated DVT prophylaxis: Xarelto 10mg daily CODE STATUS: Full code The patient's management plan was discussed with my attending physician Dr. Tello. Sanjuana Dewitt, PGY-2
[2024-11-13] MEDS: RINGERS LACTATED 1000 ML 1,000 ML 75 ML IV (19:44)
[2024-11-13] MEDS: metroNIDAZOLE/NS 500 MG IVPB 500 MG/100 ML BAG 200 MG IV (20:23)
[2024-11-13 23:36] LABS: Stool for WBCs Negative (Negative)
[2024-11-13] MEDS: PANTOPRAZOLE 20 MG TABLET PO (23:47)
[2024-11-14] VITALS: BP 106/56; PULSE 89; RESP 16; TEMP 37; O2SAT 92
[2024-11-14] MEDS: ONDANSETRON INJ 2 MG/ML INJ 2 ML 4 MG IVP (01:03)
--- NOTE | 2024-11-14 02:27 | PC.NURSE ---
At time of admission, med rec was attempted but was not fully completed as the patient dose not know what mediation she takes at home and patient stated to nurse that my daughter is the one that deals with all my medication. My daughter gave a list of my mediation to the doctors in the ER. Med rec was partially done but was unable to ask the patient regarding the remaining meds due to her stating that she dose not remember the medication she takes. Per patient will let her daughter know to bring the medications that need to be reconciled.
[2024-11-14 04:00] VITALS: BP 100/55; PULSE 58; RESP 17; TEMP 37.1; O2SAT 93
[2024-11-14] MEDS: metroNIDAZOLE/NS 500 MG IVPB 500 MG/100 ML BAG 200 MG IV ×2 (05:18→13:41)
[2024-11-14 05:30] LABS: Basophils # (Auto) 0.0 Thou/mm3 (0.0-0.2); Basophils % (Auto) 0 % (0-2.5); Eosinophils # (Auto) 0.0 Thou/mm3 (0.0-0.5); Eosinophils % (Auto) 0 % (0-10); Hematocrit 39.8 % (36.0-46.0); Hemoglobin 12.8 g/dL (12.0-16.0); Immature Granulocytes Auto 0.03 Thou/mm3 (0.00-0.00); Lymphocytes # (Auto) 1.3 Thou/mm3 (1.0-4.8); Lymphocytes % (Auto) 15 % (10-50); Mean Corpuscular HGB Conc 32.2 g/dl (31.0-37.0); Mean Corpuscular Hemoglobin 29.2 pg (25.0-35.0); Mean Corpuscular Volume 91 fL (80-100); Monocytes # (Auto) 0.7 Thou/mm3 (0.0-0.8); Monocytes % (Auto) 8 % (0-12); Neutrophils # (Auto) 6.7 Thou/mm3 (1.8-7.7); Neutrophils % (Auto) 76 % (37-80); Nucleated Red Blood Cell # 0.00 Thou/mm3 (0.00-0.00); Nucleated Red Blood Cell % 0 /100 WBC (0); Platelet Count 233 Thou/mm3 (140-440); RDW Standard Deviation 42.8 fL (36.4-46.3); Red Blood Count 4.38 Miln/mm3 (4.00-5.20); White Blood Count 8.8 Thou/mm3 (3.6-11.0)
[2024-11-14 06:11] LABS: Alanine Aminotransferase 45 U/L (10-49); Albumin, Serum 3.5 gm/dL (3.4-4.8); Albumin/Globulin Ratio 1.8 (1.2-2.2); Alkaline Phosphatase 73 U/L (46-116); Anion Gap 11 (7-16); Aspartate Amino Transferase 59 U/L (0-34); BUN/Creatinine Ratio 13 Ratio (12-20); Bilirubin,Total 0.2 mg/dL (0.3-1.2); Blood Urea Nitrogen 9 mg/dL (9-23); Calcium 8.5 mg/dL (8.3-10.6); Calcium (Corrected) 8.9 mg/dL (8.5-10.1); Carbon Dioxide 22.7 mMol/L (20.0-31.0); Chloride 105 mMol/L (98-107); Creatinine (Component) 0.7 mg/dL (0.6-1.3); Estimated Creatinine Clearance 52.1 mL/min (>60); Globulin 2.0 gm/dL (2.3-3.5); Glucose 93 mg/dL (74-106); Magnesium 1.5 mg/dL (1.6-2.6); Osmolality,Calculated 276 (275-295); Phosphorous 3.3 mg/dL (2.4-5.1); Potassium 3.2 mMol/L (3.4-5.1); Sodium 139 mMol/L (136-145); Total Protein 5.5 gm/dL (5.7-8.2); eGFR > 60 See Note
[2024-11-14 08:00] VITALS: BP 104/54; PULSE 77; RESP 16; TEMP 37.2; O2SAT 94
[2024-11-14 08:11] LABS: Clostridium Difficile PCR Positive (Negative)
[2024-11-14] MEDS: RIVAROXABAN 10 MG TABLET PO (09:22)
[2024-11-14] MEDS: Magnesium Sulfate 4 GM Ivpb 4 GM/50 ML BAG IV (09:22)
[2024-11-14] MEDS: cefTRIAXone 2 GM in SODIUM CHLORIDE 0.9% (Popper) 50 ML IV (09:23)
[2024-11-14] MEDS: RINGERS LACTATED 1000 ML 1,000 ML 75 ML IV (09:23)
--- NOTE | 2024-11-14 12:16 | PC.SS ---
Swetha Davidson is a 89 year old female admitted to [facility] for Intractable ABD Pain, N/V. SS conducted over the phone contact with pt dtr Dasha Oconnor H#) [phone] C#) [phone]. Dasha confirmed demographic information. She identifies herself as the pts surrogate decision maker. Pt resides at home with her and in primarily independent but has gotten weak over a few weeks. Pt has a rollator walker at home. DC options discussed and Dasha is interested in short-term rehab for the pt. SS informed her PT-Jaciel is also recommending SNF as well. Their preference is [facility]. Transportation discussed and per Dasha she is willing to transport pt privately if coordinated with her prior as she has appointments this week. Pts pcp is Dr. Jeannine Rose. SS will remain available for any additional needs or concerns. DC plan: SNF DM: Anupama PCP: Rose
[2024-11-14 12:23] LABS: Campylobacter PCR Negative (Negative); Salmonella Species PCR Negative (Negative); Shiga Toxin PCR Negative (Negative); Shigella Species PCR Negative (Negative)
--- NOTE | 2024-11-14 12:39 | ESPR_ITS ---
<Statement entered by Patrick Tello MD - 11/18/24 17:40> I reviewed above note and agree with findings and plans. I have also personally examined the patient with medicine team and went over assessment and plan with medical team including editorial intern and resident physician. <Statement entered by Sanjuana Dewitt MD - 11/14/24 15:35> Patient examined at bedside. No events overnight. She does endorse having a bowel movement late last night. Abdominal pain has improved and she is tolerating liquid diet. Physical therapy evaluated her and recommended SNF placement. Stool cultures returned positive for C diff toxin. Low concern for fulminant colitis at this time. Discontinue ceftriaxone and metronidazole. Start patient on p.o. vancomycin 125mg QID for total of 10 days. Monitor BM daily for improvement. The patient's management plan was discussed with my attending physician Dr. Tello. Sanjuana Dewitt, PGY-2 Documentation for date of: 11/14/24 Subjective Subjective Interval history: Patient examined at bedside, NAOE. She is tolerating CLD well without nausea or vomiting. Abdominal pain has improved but she states she had an accidental bowel movement last night. She was noted to be hypotensive today 100/55. K was 3.2 and Mg 1.5, repleted accordingly. Most notably, C dif was positive. Continued mIVF Oral Vanc 125 mg qid initiated. D/C ceftriaxone and metronidazole. Exam Vital Signs Temp Pulse Resp BP Pulse Ox O2 Del Method 98.9 F 77 16 104/54 L 94 L Room Air 11/14/24 08:00 11/14/24 08:00 11/14/24 08:00 11/14/24 08:00 11/14/24 08:00 11/14/24 08:00 Narrative Exam General: Elderly patient, laying on side in bed, no acute distress, sheets are stained with greenish brown colored stool. HEENT: Mucosa moist. Pupils are equal Cardiovascular: extremities warm and well perfused. Regular pulse rate. Respiratory: No tachypnea, labored speech, cough, or stridor. Abdomen: Soft, nontender to palpation, not distended, Skin: Dry, no rashes or bruising Musculoskeletal: No gross injuries. Able to move all 4 extremities. Non edematous lower extremities. Neuro: Alert and oriented x3. No focal neuro deficits. Psych: Normal affect and mood Objective Labs 11/14/24 04:33 11/14/24 04:33 Labs: Laboratory Results - last 24 hr 11/13/24 11/13/24 11/13/24 12:36 13:21 13:55 WBC 8.1 RBC 4.58 Hgb 13.3 Hct 41.0 MCV 90 MCH 29.0 MCHC 32.4 RDW Std Deviation 41.7 Plt Count 240 Neut % (Auto) 74 Lymph % (Auto) 15 [place] % (Auto) 10 Eos % (Auto) 0 Baso % (Auto) 0 Neut # (Auto) 6.0 Lymph # (Auto) 1.2 [place] # (Auto) 0.8 Eos # (Auto) 0.0 Baso # (Auto) 0.0 Immature Gran # (Auto) 0.03 H Absolute Nucleated RBC 0.00 Immature Gran % 0 Nucleated RBC % 0 PT 11.6 INR 1.1 APTT 27.8 Sodium 138 Potassium 3.5 Chloride 101 Carbon Dioxide 27.0 Anion Gap 10 BUN 10 Creatinine 0.8 Estim Creat Clear Calc 47.1 L eGFR > 60 BUN/Creatinine Ratio 13 Glucose 105 Calculated Osmolality 274 L Lactic Acid 1.6 Calcium 9.1 Corrected Calcium 9.2 Phosphorus 3.6 Magnesium 1.8 Total Bilirubin 0.4 AST 53 H ALT 41 Alkaline Phosphatase 82 Lactate Dehydrogenase 170 Troponin I < 0.002 B-Natriuretic Peptide 104 H Total Protein 6.1 Albumin 3.9 Globulin 2.2 L Albumin/Globulin Ratio 1.8 Procalcitonin 0.08 Ur Collection Type Clean Catch Urine Color Yellow Urine Clarity Turbid A Urine pH 5.5 Ur Specific [place] 1.030 Urine Protein 1+ A Urine Glucose (UA) Negative Urine Ketones 1+ A Urine Blood Negative Urine Nitrite Negative Urine Bilirubin Negative Urine Urobilinogen (Auto) Negative Ur Leukocyte Esterase Negative Urine RBC 1 Urine WBC 2 Ur Squamous Epith Cells 0 Urine Bacteria None Ur Culture Indicated? Not Indicated Stool for White Cells Stool Campylobacter PCR Stl C. diff Tox B Gene Stl E.coli Shiga Tox PCR Stool Salmonella PCR Stool Shigella PCR 11/13/24 11/13/24 11/14/24 20:21 22:21 04:33 WBC 8.8 RBC 4.38 Hgb 12.8 Hct 39.8 MCV 91 MCH 29.2 MCHC 32.2 RDW Std Deviation 42.8 Plt Count 233 Neut % (Auto) 76 Lymph % (Auto) 15 [place] % (Auto) 8 Eos % (Auto) 0 Baso % (Auto) 0 Neut # (Auto) 6.7 Lymph # (Auto) 1.3 [place] # (Auto) 0.7 Eos # (Auto) 0.0 Baso # (Auto) 0.0 Immature Gran # (Auto) 0.03 H Absolute Nucleated RBC 0.00 Immature Gran % 0 Nucleated RBC % 0 PT INR APTT Sodium 139 Potassium 3.2 L Chloride 105 Carbon Dioxide 22.7 Anion Gap 11 BUN 9 Creatinine 0.7 Estim Creat Clear Calc 52.1 L eGFR > 60 BUN/Creatinine Ratio 13 Glucose 93 Calculated Osmolality 276 Lactic Acid Calcium 8.5 Corrected Calcium 8.9 Phosphorus 3.3 Magnesium 1.5 L Total Bilirubin 0.2 L AST 59 H ALT 45 Alkaline Phosphatase 73 Lactate Dehydrogenase Troponin I B-Natriuretic Peptide Total Protein 5.5 L Albumin 3.5 Globulin 2.0 L Albumin/Globulin Ratio 1.8 Procalcitonin Ur Collection Type Urine Color Urine Clarity Urine pH Ur Specific [place] Urine Protein Urine Glucose (UA) Urine Ketones Urine Blood Urine Nitrite Urine Bilirubin Urine Urobilinogen (Auto) Ur Leukocyte Esterase Urine RBC Urine WBC Ur Squamous Epith Cells Urine Bacteria Ur Culture Indicated? Stool for White Cells Negative Stool Campylobacter PCR Negative Stl C. diff Tox B Gene Positive A Stl E.coli Shiga Tox PCR Negative Stool Salmonella PCR Negative Stool Shigella PCR Negative Quality Measures Quality Measures none Advance care planning discussed with:: patient Assessment & Plan Assessment Current Active Medications: Generic Name Dose Route Start Last Admin Trade Name Freq PRN Reason Stop Dose Admin Acetaminophen 650 mg 11/13/24 17:41 Acetaminophen 325 Mg Tablet PO 12/13/24 17:40 Q6H PRN Fever >100.1 or pain Lactated Ringer's 1,000 mls @ 75 mls/hr 11/13/24 17:46 11/14/24 09:23 Lactated Ringers IV 12/13/24 17:45 75 mls/hr .[id number] HARVINDER Administration Ceftriaxone Sodium 2 gm/ 50 mls @ 100 mls/hr 11/14/24 09:00 11/14/24 09:23 Sodium Chloride IV 11/21/24 08:59 100 mls/hr QDAY HARVINDER Administration Metronidazole 500 mg in 100 mls @ 200 mls/hr 11/13/24 19:40 11/14/24 05:18 Flagyl 500 Mg Iv IV 11/20/24 19:39 200 mls/hr Q8HR HARVINDER Administration Ondansetron HCl 4 mg 11/13/24 17:41 11/14/24 01:03 Ondansetron Inj 2 Mg/Ml Inj 2 Ml IVP 12/13/24 17:40 4 mg Q6H PRN Administration NAUSEA OR VOMITING Protocol Rivaroxaban 10 mg 11/14/24 09:00 11/14/24 09:22 Rivaroxaban 10 Mg Tablet PO 12/14/24 08:59 10 mg QDAY HARVINDER Administration Sennosides 1 tab 11/13/24 17:41 Senna Tablet PO 12/13/24 17:40 QDAY PRN constipation Protocol Plan Swetha Davidson is 89yr female with 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 CT abdomen pelvis showing diverticulosis with diverticulitis. Will admit patient for generalized weakness, intractable abdominal pain, intractable nausea and vomiting secondary to diverticulitis. # Intractable abdominal pain #Intractable nausea and vomiting #Generalized weakness 2/2 #Diverticulitis Endorses LLQ pain, diarrhea 3-4 movements past 3 days, nausea/vomiting, decreased oral intake. No fever, WBC within normal limits. CT head was negative for any acute changes, CT abdomen pelvis showing diverticulosis with diverticulitis. She was given 1 bolus LR and 1 dose 1 g ceftriaxone while in the ED. Stool studies remarkable for positive C. dif antigen. - Oral Vancomycin, 125 mg qid (11/14- ?CLD currently, advance FLD. ?IV ceftriaxone 2 g daily (11/13-11/14) Discontinued ?IV metronidazole 500 mg TID (11/13-11/14) Discontinued ?Maintenance fluids IV LR 75 cc/hr ?Zofran for nausea -PT eval, recommending SNF. #COVID-19 infection Patient is clinically stable saturating adequately on room air. - Continue to monitor status -supportive care # Recurrent DVTs Resume home medication Xarelto 10 mg daily starting tomorrow. #Hypertension Hold home medication metoprolol succinate 25 mg daily as blood pressure well- controlled at this time. - Continue to monitor vitals #Hyperlipidemia resume atorvastatin 40 mg daily Health Maintenance: DVT prophylaxis: SCDs Diet: CLD Freed: No Lines: PIV CODE STATUS: Full code Disposition:Likely SNF, pending resolution of C.dif colitis. Patient's plan and care discussed with my attending, Dr Tello and my senior resident Dr Esdras Yepez, DO PGY-1 ([facility] Resident)
--- NOTE | 2024-11-14 12:40 | PC.SS ---
SNF referral submitted to all local facilities, pending responses. Pt is COVID +.
[2024-11-14 13:29] VITALS: BMI 13.0
--- NOTE | 2024-11-14 13:44 | PC.PT ---
Patient is safe to ambulate to the bathroom with a FWW and 1 staff assist. RN made aware.
[2024-11-14 16:56] VITALS: PULSE 67; RESP 18; RESP 95
[2024-11-14] MEDS: VANCOMYCIN 125 MG CAPSULE PO ×2 (17:50→20:43)
--- NOTE | 2024-11-14 19:50 | PC.NURSE ---
Home medication verified with daughter Sonia over the phone.
[2024-11-14 20:45] VITALS: BP 96/72; PULSE 62; RESP 18; TEMP 36.3; O2SAT 94
[2024-11-14 22:49] VITALS: PULSE 60; RESP 18; RESP 95
[2024-11-15] VITALS (8 sets, daily range): BP systolic 102–154; BP diastolic 54–96; PULSE 53–71; RESP 16–94; TEMP 36.2–37.2; O2SAT 91–95; BMI 27.3
[2024-11-15] MEDS: VANCOMYCIN 125 MG CAPSULE PO ×4 (05:06→21:49)
[2024-11-15] MEDS: ACETAMINOPHEN 325 MG TABLET 650 MG PO ×2 (05:09→21:59)
[2024-11-15 06:08] LABS: Basophils # (Auto) 0.0 Thou/mm3 (0.0-0.2); Basophils % (Auto) 0 % (0-2.5); Eosinophils # (Auto) 0.0 Thou/mm3 (0.0-0.5); Eosinophils % (Auto) 0 % (0-10); Hematocrit 40.5 % (36.0-46.0); Hemoglobin 13.4 g/dL (12.0-16.0); Immature Granulocytes Auto 0.02 Thou/mm3 (0.00-0.00); Lymphocytes # (Auto) 2.3 Thou/mm3 (1.0-4.8); Lymphocytes % (Auto) 36 % (10-50); Mean Corpuscular HGB Conc 33.1 g/dl (31.0-37.0); Mean Corpuscular Hemoglobin 29.8 pg (25.0-35.0); Mean Corpuscular Volume 90 fL (80-100); Monocytes # (Auto) 0.5 Thou/mm3 (0.0-0.8); Monocytes % (Auto) 8 % (0-12); Neutrophils # (Auto) 3.6 Thou/mm3 (1.8-7.7); Neutrophils % (Auto) 56 % (37-80); Nucleated Red Blood Cell # 0.00 Thou/mm3 (0.00-0.00); Nucleated Red Blood Cell % 0 /100 WBC (0); Platelet Count 230 Thou/mm3 (140-440); RDW Standard Deviation 42.7 fL (36.4-46.3); Red Blood Count 4.50 Miln/mm3 (4.00-5.20); White Blood Count 6.5 Thou/mm3 (3.6-11.0)
[2024-11-15 06:32] LABS: Alanine Aminotransferase 36 U/L (10-49); Albumin, Serum 3.4 gm/dL (3.4-4.8); Albumin/Globulin Ratio 1.7 (1.2-2.2); Alkaline Phosphatase 72 U/L (46-116); Anion Gap 9 (7-16); Aspartate Amino Transferase 45 U/L (0-34); BUN/Creatinine Ratio 11 Ratio (12-20); Bilirubin,Total 0.2 mg/dL (0.3-1.2); Blood Urea Nitrogen 8 mg/dL (9-23); Calcium 8.4 mg/dL (8.3-10.6); Calcium (Corrected) 8.9 mg/dL (8.5-10.1); Carbon Dioxide 25.8 mMol/L (20.0-31.0); Chloride 105 mMol/L (98-107); Creatinine (Component) 0.7 mg/dL (0.6-1.3); Estimated Creatinine Clearance 52.1 mL/min (>60); Globulin 2.0 gm/dL (2.3-3.5); Glucose 80 mg/dL (74-106); Osmolality,Calculated 276 (275-295); Potassium 3.8 mMol/L (3.4-5.1); Sodium 140 mMol/L (136-145); Total Protein 5.4 gm/dL (5.7-8.2); eGFR > 60 See Note
[2024-11-15 09:07] LABS: Magnesium 2.0 mg/dL (1.6-2.6)
--- NOTE | 2024-11-15 10:02 | ESPR_ITS ---
<Statement entered by Patrick Tello MD - 11/18/24 17:41> I reviewed above note and agree with findings and plans. I have also personally examined the patient with medicine team and went over assessment and plan with medical team including health information internship and resident physician. <Statement entered by Sanjuana Dewitt MD - 11/15/24 20:33> Note reviewed, I agree with most of its contents and agree with the patient's care as documented by Dr. Yepez. The patient's management plan was discussed with my attending physician Dr. Tello. Sanjuana Dewitt, PGY-2 Documentation for date of: 11/15/24 Subjective Subjective Interval history: Patient examined at bedside. NAOE. Yesterday she tested positive for States her abdominal pain is much better, denies nausea/vomiting. Still having loose stools but tolerating FLD well. Does endorse not drinking as much water as she should. BP this morning was still a little soft, 117/56. Patient likely DC to SNF per PT recommendations. Continuing 10 day course of oral vanc 125mg qid. mIVf LR 75cc/hr Continue monitering BM. Exam Vital Signs Temp Pulse Resp BP Pulse Ox O2 Del Method 97.1 F 56 L 22 H 107/54 L 94 L Room Air 11/15/24 08:00 11/15/24 08:00 11/15/24 08:00 11/15/24 08:00 11/15/24 08:00 11/15/24 08:00 Narrative Exam General: Elderly patient, sitting up in bed, conversational no acute distress, HEENT: Oral Mucosa a little dry Pupils are equal Cardiovascular: Regular rate and rhythm, no murmur or rub heard. Respiratory: Lung CTA bilaterally, no wheezes or crackles appreciated. Abdomen: Soft, very mild tenderness to palpation in the LLQ, not distended, Skin: Dry, no rashes or bruising, Musculoskeletal: No gross injuries. Able to move all 4 extremities. Non edematous lower extremities. Neuro: Alert and oriented x3. No focal neuro deficits. Psych: Normal affect and mood Objective Labs 11/15/24 04:30 11/15/24 04:30 Labs: Laboratory Results - last 24 hr 11/13/24 11/15/24 20:21 04:30 WBC 6.5 RBC 4.50 Hgb 13.4 Hct 40.5 MCV 90 MCH 29.8 MCHC 33.1 RDW Std Deviation 42.7 Plt Count 230 Neut % (Auto) 56 Lymph % (Auto) 36 Bertie % (Auto) 8 Eos % (Auto) 0 Baso % (Auto) 0 Neut # (Auto) 3.6 Lymph # (Auto) 2.3 Bertie # (Auto) 0.5 Eos # (Auto) 0.0 Baso # (Auto) 0.0 Immature Gran # (Auto) 0.02 H Absolute Nucleated RBC 0.00 Immature Gran % 0 Nucleated RBC % 0 Sodium 140 Potassium 3.8 D Chloride 105 Carbon Dioxide 25.8 Anion Gap 9 BUN 8 L Creatinine 0.7 Estim Creat Clear Calc 52.1 L eGFR > 60 BUN/Creatinine Ratio 11 L Glucose 80 Calculated Osmolality 276 Calcium 8.4 Corrected Calcium 8.9 Magnesium 2.0 Total Bilirubin 0.2 L AST 45 H ALT 36 Alkaline Phosphatase 72 Total Protein 5.4 L Albumin 3.4 Globulin 2.0 L Albumin/Globulin Ratio 1.7 Stool Campylobacter PCR Negative Stl E.coli Shiga Tox PCR Negative Stool Salmonella PCR Negative Stool Shigella PCR Negative Quality Measures Quality Measures none Advance care planning discussed with:: patient Assessment & Plan Assessment Current Active Medications: Generic Name Dose Route Start Last Admin Trade Name Freq PRN Reason Stop Dose Admin Acetaminophen 650 mg 11/13/24 17:41 11/15/24 05:09 Acetaminophen 325 Mg Tablet PO 12/13/24 17:40 650 mg Q6H PRN Administration Fever >100.1 or pain Lactated Ringer's 1,000 mls @ 75 mls/hr 11/13/24 17:46 11/14/24 09:23 Lactated Ringers IV 12/13/24 17:45 75 mls/hr .[id number] HARVINDER Administration Ondansetron HCl 4 mg 11/13/24 17:41 11/14/24 01:03 Ondansetron Inj 2 Mg/Ml Inj 2 Ml IVP 12/13/24 17:40 4 mg Q6H PRN Administration NAUSEA OR VOMITING Protocol Rivaroxaban 10 mg 11/14/24 09:00 11/15/24 08:27 Rivaroxaban 10 Mg Tablet PO 12/14/24 08:59 Not Given QDAY HARVINDER Sennosides 1 tab 11/13/24 17:41 Senna Tablet PO 12/13/24 17:40 QDAY PRN constipation Protocol Vancomycin HCl 125 mg 11/14/24 17:00 11/15/24 05:06 Vancomycin 125 Mg Capsule PO 11/24/24 12:01 125 mg QID HARVINDER Administration Plan Swetha Davidson is 89yr female with 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 CT abdomen pelvis showing diverticulosis with diverticulitis. Will admit patient for generalized weakness, intractable abdominal pain, intractable nausea and vomiting secondary to diverticulitis. #C-dif colitis #Diverticulitis # Intractable abdominal pain- resolved #Intractable nausea and vomiting - resolved #Generalized weakness 2/2 Endorses LLQ pain, diarrhea 3-4 movements past 3 days, nausea/vomiting, decreased oral intake. No fever, WBC within normal limits. CT head was negative for any acute changes, CT abdomen pelvis showing diverticulosis with diverticulitis. She was given 1 bolus LR and 1 dose 1 g ceftriaxone while in the ED. Stool studies remarkable for positive C. dif DNA. Overall, abdominal pain much improved, but still having frequent loose stools. Tolerating CLD well without nausea or vomiting. - Oral Vancomycin, 125 mg qid (11/14- 10 day course ?FLD currently, advance to regular diet. ?IV ceftriaxone 2 g daily (11/13-11/14) Discontinued ?IV metronidazole 500 mg TID (11/13-11/14) Discontinued ?Maintenance fluids IV LR 75 cc/hr ?Zofran for nausea -PT eval, recommending SNF. #COVID-19 infection Patient is clinically stable saturating adequately on room air. - Continue to monitor status -supportive care # Recurrent DVTs Resume home medication Xarelto 10 mg daily starting tomorrow. #Hypertension Hold home medication metoprolol succinate 25 mg daily as blood pressure well- controlled at this time. - Continue to monitor vitals #Hyperlipidemia resume atorvastatin 40 mg daily Health Maintenance: DVT prophylaxis: SCDs Diet: CLD Freed: No Lines: PIV CODE STATUS: Full code Disposition:Likely SNF, pending resolution of C.dif colitis. Patient's plan and care discussed with my attending, Dr. Tello and Dr. Esdras Yepez, DO PGY-1 ([facility] Resident)
--- NOTE | 2024-11-15 13:15 | PC.PT ---
Patient will be D/C from PT services at this time as she is xI with bed mobility, transfers, and ambulation. [employer]ARING SUPERVISOR made aware.
--- NOTE | 2024-11-15 21:57 | PC.NURSE ---
Pulled tylenol 650 mg tabs per Joann's request for pt's c/o pain. Joann, in her PPE will administer med.
[2024-11-16] VITALS (7 sets, daily range): BP systolic 127–144; BP diastolic 64–77; PULSE 49–80; RESP 16–92; TEMP 36.2–37.2; O2SAT 92–96
[2024-11-16 05:24] LABS: Basophils # (Auto) 0.0 Thou/mm3 (0.0-0.2); Basophils % (Auto) 0 % (0-2.5); Eosinophils # (Auto) 0.0 Thou/mm3 (0.0-0.5); Eosinophils % (Auto) 0 % (0-10); Hematocrit 41.0 % (36.0-46.0); Hemoglobin 13.7 g/dL (12.0-16.0); Immature Granulocytes Auto 0.01 Thou/mm3 (0.00-0.00); Lymphocytes # (Auto) 2.7 Thou/mm3 (1.0-4.8); Lymphocytes % (Auto) 53 % (10-50); Mean Corpuscular HGB Conc 33.4 g/dl (31.0-37.0); Mean Corpuscular Hemoglobin 30.2 pg (25.0-35.0); Mean Corpuscular Volume 90 fL (80-100); Monocytes # (Auto) 0.5 Thou/mm3 (0.0-0.8); Monocytes % (Auto) 9 % (0-12); Neutrophils # (Auto) 1.8 Thou/mm3 (1.8-7.7); Neutrophils % (Auto) 37 % (37-80); Nucleated Red Blood Cell # 0.00 Thou/mm3 (0.00-0.00); Nucleated Red Blood Cell % 0 /100 WBC (0); Platelet Count 217 Thou/mm3 (140-440); RDW Standard Deviation 42.3 fL (36.4-46.3); Red Blood Count 4.54 Miln/mm3 (4.00-5.20); White Blood Count 5.0 Thou/mm3 (3.6-11.0)
[2024-11-16 05:36] LABS: Alanine Aminotransferase 29 U/L (10-49); Albumin, Serum 3.4 gm/dL (3.4-4.8); Albumin/Globulin Ratio 1.7 (1.2-2.2); Alkaline Phosphatase 69 U/L (46-116); Anion Gap 10 (7-16); Aspartate Amino Transferase 36 U/L (0-34); BUN/Creatinine Ratio 8 Ratio (12-20); Bilirubin,Total 0.3 mg/dL (0.3-1.2); Blood Urea Nitrogen < 5 mg/dL (9-23); Calcium 8.4 mg/dL (8.3-10.6); Calcium (Corrected) 8.9 mg/dL (8.5-10.1); Carbon Dioxide 26.4 mMol/L (20.0-31.0); Chloride 105 mMol/L (98-107); Creatinine (Component) 0.6 mg/dL (0.6-1.3); Estimated Creatinine Clearance 59.3 mL/min (>60); Globulin 2.0 gm/dL (2.3-3.5); Glucose 93 mg/dL (74-106); Magnesium 1.7 mg/dL (1.6-2.6); Osmolality,Calculated 278 (275-295); Potassium 3.5 mMol/L (3.4-5.1); Sodium 141 mMol/L (136-145); Total Protein 5.4 gm/dL (5.7-8.2); eGFR > 60 See Note
[2024-11-16] MEDS: VANCOMYCIN 125 MG CAPSULE PO ×4 (05:38→21:25)
[2024-11-16] MEDS: Magnesium Sulfate 2 GM Ivpb 2 GM/50 ML BAG IV (08:16)
[2024-11-16] MEDS: RIVAROXABAN 10 MG TABLET PO (08:16)
--- NOTE | 2024-11-16 09:58 | PC.SS ---
SS follow up note; Patient will possibly discharge home tomorrow.
--- NOTE | 2024-11-16 11:53 | PC.NURSE ---
Pt verbalized that she would like to be discharge to a SNF due to her daughter unable to take care of her at home. SS and MD contacted regarding discharge plan.
--- NOTE | 2024-11-16 14:30 | PC.SS ---
SS follow up note; SS contacted Trinity from [facility] and she informed SS they are able to accept Patient as per patient's request. Trinity informed SS patient is able to discharge tomorrow, patient will complete her three midnights. SS updated patient.
--- NOTE | 2024-11-16 18:33 | ESPR_ITS ---
<Statement entered by Patrick Tello MD - 11/18/24 17:42> I reviewed above note and agree with findings and plans. I have also personally examined the patient with medicine team and went over assessment and plan with medical team including medical intern and resident physician. <Statement entered by Cassandra Amor MD - 11/17/24 13:23> I discussed with and supervised the medical intern physician who took care of this patient. I personally saw and examined the patient and discussed the assessment and plan with the entire medicine team, including my attending Dr. Tello, I agree with most of the assessment and plan as documented below Cassandra Amor M.D. PGY-3 Disclaimer: Despite multiple revisions, due to the dictation software being used, the document bellow may not be free of grammatical errors including phonetic/typographic errors. However, this does not deter from our commitment to providing health care in the patient's best interest in mind. Documentation for date of: 11/16/24 Subjective Subjective Interval history: Patient examined at bedside. NAOE. Patient states she didn't have a good night last night because she was up multiple times having bowel movements. States it feels like the food is running through her. She had about 5 loose BMs since last encounter the day before. Of note, BP has improved, has been soft these last few days. Patient awaiting placement at SNF, but pending coming off of isolation from covid isolation. Likely 2 more days. Exam Vital Signs Temp Pulse Resp BP Pulse Ox O2 Del Method 97.6 F 59 L 18 131/64 H 92 L Room Air 11/16/24 16:11/16/24 16:11/16/24 16:00 11/16/24 16:11/16/24 16:11/16/24 16:00 Narrative Exam General: Elderly patient, sitting up in bed, conversational no acute distress, HEENT: Oral Mucosa a little dry Pupils are equal Cardiovascular: Regular rate and rhythm, no murmur or rub heard. Respiratory: Lung CTA bilaterally, no wheezes or crackles appreciated. Abdomen: Soft, very mild tenderness to palpation in the LLQ, not distended, Skin: Dry, no rashes or bruising, Musculoskeletal: No gross injuries. Able to move all 4 extremities. Non edematous lower extremities. Neuro: Alert and oriented x3. No focal neuro deficits. Psych: Normal affect and mood Objective Labs 11/16/24 05:00 11/16/24 05:00 Labs: Laboratory Results - last 24 hr 11/16/24 05:00 WBC 5.0 RBC 4.54 Hgb 13.7 Hct 41.0 MCV 90 MCH 30.2 MCHC 33.4 RDW Std Deviation 42.3 Plt Count 217 Neut % (Auto) 37 Lymph % (Auto) 53 H Brule % (Auto) 9 Eos % (Auto) 0 Baso % (Auto) 0 Neut # (Auto) 1.8 Lymph # (Auto) 2.7 Brule # (Auto) 0.5 Eos # (Auto) 0.0 Baso # (Auto) 0.0 Immature Gran # (Auto) 0.01 H Absolute Nucleated RBC 0.00 Immature Gran % 0 Nucleated RBC % 0 Sodium 141 Potassium 3.5 Chloride 105 Carbon Dioxide 26.4 Anion Gap 10 BUN < 5 L Creatinine 0.6 Estim Creat Clear Calc 59.3 L eGFR > 60 BUN/Creatinine Ratio 8 L Glucose 93 Calculated Osmolality 278 Calcium 8.4 Corrected Calcium 8.9 Magnesium 1.7 Total Bilirubin 0.3 AST 36 H ALT 29 Alkaline Phosphatase 69 Total Protein 5.4 L Albumin 3.4 Globulin 2.0 L Albumin/Globulin Ratio 1.7 Quality Measures Quality Measures none Advance care planning discussed with:: patient Assessment & Plan Assessment Current Active Medications: Generic Name Dose Route Start Last Admin Trade Name Freq PRN Reason Stop Dose Admin Acetaminophen 650 mg 11/13/24 17:41 11/15/24 21:59 Acetaminophen 325 Mg Tablet PO 12/13/24 17:40 650 mg Q6H PRN Administration Fever >100.1 or pain Gabapentin 100 mg 11/17/24 09:00 Gabapentin 100 Mg Capsule PO 12/17/24 08:59 DAILY HARVINDER Ondansetron HCl 4 mg 11/13/24 17:41 11/14/24 01:03 Ondansetron Inj 2 Mg/Ml Inj 2 Ml IVP 12/13/24 17:40 4 mg Q6H PRN Administration NAUSEA OR VOMITING Protocol Rivaroxaban 10 mg 11/14/24 09:00 11/16/24 08:16 Rivaroxaban 10 Mg Tablet PO 12/14/24 08:59 10 mg QDAY HARVINDER Administration Sennosides 1 tab 11/13/24 17:41 Senna Tablet PO 12/13/24 17:40 QDAY PRN constipation Protocol Vancomycin HCl 125 mg 11/14/24 17:00 11/16/24 17:32 Vancomycin 125 Mg Capsule PO 11/24/24 12:01 125 mg QID HARVINDER Administration Plan Swetha Davidson is 89yr female with 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 CT abdomen pelvis showing diverticulosis with diverticulitis. Will admit patient for generalized weakness, intractable abdominal pain, intractable nausea and vomiting secondary to diverticulitis. #C-dif colitis #Diverticulitis # Intractable abdominal pain- resolved #Intractable nausea and vomiting - resolved #Generalized weakness 2/2 Endorses LLQ pain, diarrhea 3-4 movements past 3 days, nausea/vomiting, decreased oral intake. No fever, WBC within normal limits. CT head was negative for any acute changes, CT abdomen pelvis showing diverticulosis with diverticulitis. She was given 1 bolus LR and 1 dose 1 g ceftriaxone while in the ED. Stool studies remarkable for positive C. dif DNA. Overall, abdominal pain much improved, but still having frequent loose stools. Tolerating Regular diet well without nausea or vomiting. - Oral Vancomycin, 125 mg qid (11/14- day course ?regular diet moniter for nausea or vomiting. ?IV ceftriaxone 2 g daily (11/13-11/14) Discontinued ?IV metronidazole 500 mg TID (11/13-11/14) Discontinued ?Maintenance fluids IV LR 75 cc/hr ?Zofran for nausea -PT eval, recommending SNF. #COVID-19 infection Patient is clinically stable saturating adequately on room air. - Continue to monitor status -supportive care # Recurrent DVTs Resume home medication Xarelto 10 mg daily starting tomorrow. #Hypertension Hold home medication metoprolol succinate 25 mg daily as blood pressure well- controlled at this time. BP starting to increase, last was 146/76. -Consider starting metoprolol tomorrow. - Continue to monitor vitals #Hyperlipidemia resume atorvastatin 40 mg daily Health Maintenance: DVT prophylaxis: SCDs Diet: Regular diet Freed: No Lines: PIV CODE STATUS: Full code Disposition:SNF pending removal of Covid isolation Patient's plan and care discussed with my attending, Dr. Tello and my senior Dr. Amor. Vineet Yepez DO PGY-1 ([facility] Resident)
[2024-11-16] MEDS: HYDROcodone/APAP 5/325 TABLET 0.5 TAB PO (21:57)
[2024-11-17] VITALS: BP 141/79; PULSE 56; RESP 17; TEMP 36.4; O2SAT 94
[2024-11-17 04:00] VITALS: BP 141/78; PULSE 63; RESP 18; TEMP 36.4; O2SAT 94
[2024-11-17] MEDS: VANCOMYCIN 125 MG CAPSULE PO ×2 (06:02→12:49)
[2024-11-17 06:18] LABS: Magnesium 1.8 mg/dL (1.6-2.6)
[2024-11-17 08:00] VITALS: BP 126/90; PULSE 68; RESP 17; TEMP 36.3; O2SAT 96
[2024-11-17] MEDS: Magnesium Sulfate 2 GM Ivpb 2 GM/50 ML BAG IV (08:57)
[2024-11-17] MEDS: GABAPENTIN 100 MG CAPSULE PO (08:58)
[2024-11-17] MEDS: RIVAROXABAN 10 MG TABLET PO (08:58)
--- NOTE | 2024-11-17 08:58 | PC.SS ---
Addendum entered by Leticia Simpson 11/17/24 12:44: SS was contacted by [employer] providing ETA for 2:30PM. SS updated patient's nurse as well as Trinity from [facility]. Original Note: SS follow up note; SS contacted patient's daughter, Sonia to inform her that patient was discharging to [facility]. Sonia informed SS she has been sick herself and is not able to transport patient. Patient does not have transportation coverage, patient's daughter expressed she is not able to provide payment. SS informed her that SS will cover one time payment and transport patient to [facility]. Patient's daughter, verbalized understanding. Patient's nurse aware that patient will discharge to [facility] today. SS contacted [employer] services and they will contact SS with ETA.
[2024-11-17 12:00] VITALS: BP 163/83; PULSE 70; RESP 18; TEMP 36.3; O2SAT 92
--- NOTE | 2024-11-17 13:29 | ESDS_ITS ---
<Statement entered by Patrick Tello MD - 11/26/24 14:39> I reviewed above note and agree with findings and plans. I have also personally examined the patient with medicine team and went over assessment and plan with medical team including mba internship and resident physician. Planned Discharge Date 11/17/24 DS: Providers Provider Date of admission: 11/13/24 18:16 Primary care physician: Jeannine Rose PA-C Admitting Provider: Patrick Tello MD Attending Provider on Admission: Patrick Tello MD Consults: 11/13/24 12:36 PT [Referral Physical Therapy] Stat Comment: Physician Instructions: Instructions: For possible placement 11/16/24 15:21 Referral Registered Dietitian Routine Comment: patient requesting smaller meal portions Attending Provider on DC: Patrick Tello MD Discharging Provider: Patrick Tello MD DS: Diagnosis Problem List Completed Was Problem List Reviewed/Reconciled?: Yes Hospital Course Hospital Course Hospital course: Reason for hospitalization: Intractable nausea, vomiting, intractable abdominal pain Swetha Davidson is 89yr female with 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 Patient is usually able to complete ADLs on her own with minimal assistance but started declining few days before admission. She was experiencing nausea with vomiting, decreased oral intake and diarrhea 3?4 episodes daily for a few days. CT head was negative for any acute changes, CT abdomen pelvis showing diverticulosis with diverticulitis and 1 mm nonobstructing bilateral renal calculi. Vitals low temp 100, heart rate 54. COVID test positive. Stool studies remarkable for positive C. dif DNA. Patient was started on p.o. vancomycin 125 mg 4 times daily for 10 days. She is to complete 7 more days of course. Patient is now in stable condition and ready for discharge. Recommendations were given as below. Discharge Recommendations: Continue taking your vancomycin until . Resume previous medications in including your metoprolol as treatment for you hypertension. Take infection precautions with hand washing regular especially after bathroom use. Hospital Diagnoses: #C-dif colitis #Diverticulitis # Intractable abdominal pain- resolved #Intractable nausea and vomiting - resolved #Generalized weakness 2/2 #COVID-19 infection # Recurrent DVTs #Hypertension #Hyperlipidemia The patient's management plan was discussed with my attending physician Dr. Tello. Sanjuana Dewitt MD, PGY-2 Time Spent with Patient Time attestation: Total time spent providing and/or coordinating discharge services: Time spent: Greater than 30 minutes Exam Vital Signs Temp Pulse Resp BP Pulse Ox O2 Del Method 97.3 F 68 17 126/90 H 96 Room Air 11/17/24 08:00 11/17/24 08:00 11/17/24 08:00 11/17/24 08:00 11/17/24 08:00 11/17/24 08:00 Discharge Plan Plan Patient Disposition: HOME (Self Care) Patient condition on transfer: Stable Prescriptions/Referrals Prescriptions/Med Rec: New vancomycin 125 mg capsule 125 mg PO QID 7 Days Qty: 28 0RF Continued omeprazole 40 MG capsule,delayed release(DR/EC) 40 mg PO QDAY Qty: 0 Xarelto 20 mg Tablet 20 mg PO QDAY Rx Instructions: must administer with evening meal atorvastatin 40 mg Tablet 40 mg PO QDAY hydrocodone-acetaminophen 5-325 mg Tablet 1 tab PO BID PRN (Reason: Pain) Patient Comments: states she takes half a pill calcium carbonate-vitamin D3 600 mg-5 mcg (200 unit) Tablet 1 tab PO DAILY pantoprazole 40 mg Tablet,Delayed Release (Dr/Ec) 40 mg PO DAILY docusate sodium 100 mg Tablet 100 mg PO DAILY gabapentin 100 mg Tablet 100 mg PO DAILY PreserVision AREDS [id number] Capsule 1 cap PO DAILY cholecalciferol (vitamin D3) [Vitamin D3] 125 mcg (5,000 unit) Tablet 5,000 unit PO DAILY Discontinued metoprolol succinate 25 mg Tablet Extended Release 24 Hr 25 mg PO QDAY Referrals: Jeannine Rose PA-C [Primary Care Provider] Patient/Caregiver Discharge Instructions Other Discharge Activity Instructions:: Continue taking your vancomycin until . Resume previous medications in including your metoprolol as treatment for you hypertension. Take infection precautions with hand washing regular especially after bathroom use. Education Materials: C diff Print Language: Italian Stand Alone Forms: Pilar Award Info., Patient Portal Info Letter Discharge Order Discharge Orders: Discharge (Routine); Ordered 11/17/24 Ordered By: Sanjuana Dewitt Quality Discharge Quality Measures VTE prophylaxis
--- NOTE | 2024-11-17 17:13 | PC.NURSE ---
This nurse called [facility] and handed off discharge report to GLADIS Mckeon at 12:25. ETA transport set up for 1445.
== END 2024-11-17 15:25 | disposition home or self-care (01) | DRG 371 ==
LOC: SERX 16:59 → SERHOLD 18:21 → S3NX 19:01 → S3SX 22:14
PROVIDERS: Nurse Practitioner Family; Admitting Provider Internal Medicine; Emergency Provider Family Medicine; PCP Physician Assistant; Visit Provider Internal Medicine
DX: A04.72 Enterocolitis due to Clostridium difficile, not specified as recurrent (principal); J12.82 Pneumonia due to coronavirus disease 2019; U07.1 COVID-19; K57.32 Diverticulitis of large intestine without perforation or abscess without bleeding; N39.0 Urinary tract infection, site not specified; I10 Essential (primary) hypertension; E78.5 Hyperlipidemia, unspecified; Z86.718 Personal history of other venous thrombosis and embolism; Z79.01 Long term (current) use of anticoagulants; Z78.9 Other specified health status; Z79.899 Other long term (current) drug therapy
CPT/HCPCS: 36415; 70450; 71045; 74176; 80053; 81001; 83605; 83615; 83735; 83880; 84100; 84145; 84484; 85025; 85610; 85730; 87015; 87040; 87045; 87046; 87205; 87400; 87493; 87811; 87899; 93005; 96361; 96365; 96375; 97163; 99285; J0696; J2405; J3475; J3490; J7050; J7120; A9270; J1836

== ENCOUNTER → 2024-12-10 | Outpatient (CLI) | payer MEDICARE, BC, SELFPAY ==
--- NOTE | 2024-12-10 14:39 | XR_ITS ---
EXAMINATION: PA lateral chest 2 views TECHNIQUE: Upright PA lateral chest 2 views Date and time: December 10, 2024, 1500 hours, comparison 11/13/2024 INDICATIONS: Early pneumonia left base on chest from 11/13/2024 FINDINGS: Pneumonia left base has cleared No new areas of pneumonia. Normal heart size. Severe osteopenia IMPRESSION: Pneumonia left base has cleared
== END | disposition home or self-care (01) ==
LOC: CDIM 14:27
PROVIDERS: PCP Family Medicine; Referring Provider Student in an Organized Health Care Education/Training Program; Visit Provider Student in an Organized Health Care Education/Training Program
DX: J18.9 Pneumonia, unspecified organism (principal)
CPT/HCPCS: 71046

== ENCOUNTER → 2025-02-11 | Outpatient (CLI) | payer MEDICARE, BC, SELFPAY ==
--- NOTE | 2025-02-11 14:27 | XR_ITS ---
EXAMINATION: Left knee 2 views TECHNIQUE: AP lateral left knee 2 views Date and time: February 11, 2025, 1451 hours INDICATIONS: Patient fell January 14, 2025 with injury of the knee, knee pain. FINDINGS: Severe osteopenia Advanced narrowing medial joint space No fracture or dislocation IMPRESSION: No fracture or dislocation
--- NOTE | 2025-02-11 15:15 | XR_ITS ---
Examination: CT pelvis left hip, without contrast. 2-D sagittal reconstructions. 2-D coronal reconstructions. 3-D reconstructions. Date and time of exam: February 11, 2025, 1625 hours INDICATIONS: Patient fell today with injury to the hip, hip pain CTDI: vol (mGy): 9.48 DLP: (mGycm): 298 Technique: Multiple 1.25 mm axial sections of the pelvis left hip have been obtained. 2-D sagittal and coronal reconstructions have been obtained. 3-D reconstructions have been obtained. Low dose protocols were performed. One or more of the following dose reduction techniques were used; automated exposure control, adjustment of the mA and/or KV according to patient size, use of iterative reconstruction technique. Findings: Abundant stool in the right colon Colonic diverticulosis Atrophic anteverted uterus Urinary bladder wall thickening up to 5 mm Left hip hemiarthroplasty with satisfactory alignment Prominent soft tissue swelling anterior to the left hip with subtle low density areas measuring at least 22 mm in dimension, axial image 96 This could represent hematoma or abscess Right hip bones of the pelvis intact IMPRESSION: Left hip hemiarthroplasty with satisfactory alignment Prominent soft tissue swelling anterior to left hip with subtle low density areas measuring at least 22 mm in dimension which could represent hematoma or abscess Recommend repeating the CT scan of the pelvis with intravenous contrast
== END | disposition home or self-care (01) ==
PROVIDERS: PCP Family Medicine; Referring Provider Registered Nurse; Visit Provider Registered Nurse
DX: M25.562 Pain in left knee (principal); M25.852 Other specified joint disorders, left hip; Z96.642 Presence of left artificial hip joint; S72.009S Fracture of unspecified part of neck of unspecified femur, sequela; W19.XXXS Unspecified fall, sequela
CPT/HCPCS: 73560; 73700

== ENCOUNTER → 2025-02-14 | Outpatient (CLI) | payer MEDICARE, BC, SELFPAY ==
--- NOTE | 2025-02-14 12:09 | XR_ITS ---
Examination: CT pelvis with intravenous contrast 2-D sagittal reconstructions. 2-D coronal reconstructions. 3-D reconstructions. Date and time of exam: February 14, 2025, 1249 hours, comparison CT pelvis without contrast February 11, 2025 INDICATIONS: Left hip pain, left hip hemiarthroplasty with soft tissue swelling anterior to the left hip on noncontrast study February 11, 2025 CTDI: vol (mGy): 8.49 DLP: (mGycm): 272 Technique: Multiple 1.25 mm axial sections of the pelvis with 60 cc [id number] have been obtained. 2-D sagittal and coronal reconstructions have been obtained. 3-D reconstructions have been obtained. Low dose protocols were performed. One or more of the following dose reduction techniques were used; automated exposure control, adjustment of the mA and/or KV according to patient size, use of iterative reconstruction technique. Findings: Colonic diverticulosis Atrophic uterus Contracted urinary bladder soft tissue swelling anterior to the left hip with one small necrotic or low density center 16 mm axial image 99 Differential would include abscess, hematoma, clinical correlation advised IMPRESSION: Poorly defined soft tissue mass 5.5 x 3.3 cm anterior to the left hip with necrotic center, differential would include abscess, soft tissue hematoma, clinical correlation advised
[2025-02-14 12:16] LABS: Anion Gap 11 (7-16); BUN/Creatinine Ratio 16 Ratio (12-20); Blood Urea Nitrogen 13 mg/dL (9-23); Calcium 9.8 mg/dL (8.3-10.6); Carbon Dioxide 30.5 mMol/L (20.0-31.0); Chloride 101 mMol/L (98-107); Creatinine (Component) 0.8 mg/dL (0.6-1.3); Glucose 120 mg/dL (74-106); Osmolality,Calculated 284 (275-295); Potassium 4.1 mMol/L (3.4-5.1); Sodium 142 mMol/L (136-145); eGFR > 60 See Note
== END | disposition home or self-care (01) ==
PROVIDERS: PCP Family Medicine; Referring Provider Registered Nurse; Visit Provider Radiology Diagnostic Radiology
DX: R22.42 Localized swelling, mass and lump, left lower limb (principal); M25.552 Pain in left hip
CPT/HCPCS: 36415; 72193; 80048; A4649; Q9967